=== PATIENT | male | born 1965 | race Caucasian/White ===

== ENCOUNTER → 2017-01-06 | Outpatient (CLI) | payer MEDICARE, MEDICAID ==
[~2017-01-06] MED LIST: ASPIRIN81 MG PO; CIPRODEX 0.3%-7.5 ML OT; CLARITIN10 MG PO; CLINDAMYCIN150 MG PO; CLONIDINE0.1 MG PO; LABETALOL200 MG PO; LASIX40 MG PO; LEVAQUIN750 M1 PO; LIPITOR20 MG PO; METOPROLOL SR50 MG PO; NORVASC10 MG PO; NOVOLIN 701 UNIT/0.0; NOVOLOG 701 UNIT/0.0 SC; OXYCODONE10 MG PO; PRILOSEC40 MG PO; SODIUM BICARBO650 MG PO; VICODIN 500 MG-1 TAB PO; VITAMIN D50000 I1 PO; ZANTAC 300300 MG PO; ZITHROMAX Z PA250 MG PO; ZOCOR80 MG PO
== END | disposition home or self-care (01) ==
LOC: RAD 15:20
DX: M25.475 Effusion, left foot (principal); R20.0 Anesthesia of skin; R60.0 Localized edema

== ENCOUNTER → 2017-01-09 | Outpatient (CLI) | payer MEDICARE, MEDICAID | END | disposition home or self-care (01) | LOC: US 12:30 | DX: M79.89 Other specified soft tissue disorders (principal) ==

== ENCOUNTER 2017-01-16 20:10 | Emergency (ER) | payer MEDICARE, MEDICAID ==
[~2017-01-16] VITALS: Ht 167.6 cm
[2017-01-16 20:45] VITALS: BP 128/80
[2017-01-16 20:48] LABS: BASO % 0.2 % (0.0-1.0); EOS # 0.5 10*3/uL (0.0-0.4); EOS % 3.8 % (1.0-4.0); HEMATOCRIT 36.4 % (42.0-52.0); HEMOGLOBIN 11.4 g/dl (14.0-18.0); LYMPH % 7.7 % (27.0-41.0); MEAN CELL VOLUME 98.4 fl (80.0-94.0); MEAN CORPUSCULAR HGB 30.8 pg (27.0-31.0); MEAN CORPUSCULAR HGB CONC 31.3 g/dl (33.0-37.0); MEAN PLATELET VOLUME 12.9 fl (9.6-12.3); MONO # 0.9 10*3/uL (0.1-1.0); MONO % 7.2 % (3.0-9.0); NEUT # 10.1 10*3/uL (2.3-7.9); NEUT % 80.7 % (47.0-73.0); NUCLEATED RED BLOOD CELL 0.2 % (0.0-0.0); PLATELET COUNT AUTOMATED 149 10*3/uL (130-400); RED CELL DISTRI WIDTH 16.9 % (0-14.5); WHITE BLOOD COUNT 12.5 10*3/uL (4.8-10.8)
[2017-01-16 21:52] LABS: ALBUMIN 2.3 gm/dl (3.1-4.5); CREATININE 6.09 mg/dL (0.70-1.30); POTASSIUM 4.8 mmol/L (3.5-5.1); TOTAL PROTEIN 7.9 gm/dL (6.4-8.2)
== END 2017-01-16 22:17 | disposition short-term general hospital (02) ==
LOC: ED 20:10
PROVIDERS: Student in an Organized Health Care Education/Training Program
DX: I96 Gangrene, not elsewhere classified (principal); Z88.0 Allergy status to penicillin; Z88.2 Allergy status to sulfonamides; F41.9 Anxiety disorder, unspecified; F17.200 Nicotine dependence, unspecified, uncomplicated; Z99.2 Dependence on renal dialysis